=== PATIENT | male | born 1985 ===

== ENCOUNTER → 2017-07-16 | Outpatient (CLI) | payer OTHER | END | disposition home or self-care (01) | LOC: LAB 08:09 | DX: H60.11 Cellulitis of right external ear (principal) | CPT/HCPCS: 87070; 87205 ==

== ENCOUNTER → 2023-05-07 | Outpatient (CLI) | payer SELFPAY | LOC: LAB SHORT 10:59 → LAB 10:59 | DX: H60.11 Cellulitis of right external ear (principal) | CPT/HCPCS: 87070; 87205 ==

== ENCOUNTER 2025-02-04 12:00 | Emergency (ER) | payer OTHER, BC ==
[~2025-02-04] VITALS: Ht 165.1 cm; Wt 140.6 kg
[2025-02-04 14:28] VITALS: BP 138/98
== END 2025-02-04 14:27 | disposition home or self-care (01) ==
LOC: ER 12:00
DX: T67.5XXA Heat exhaustion, unspecified, initial encounter (principal); E11.9 Type 2 diabetes mellitus without complications
CPT/HCPCS: 99282